=== PATIENT | female | born 1945 | race Caucasian/White ===

== ENCOUNTER 2017-05-04 10:27 | Emergency (ER) | payer MEDICARE, OTHER ==
[2017-05-04] MEDS ORDERED: LIDOCAINE HCL 20 ML VIAL ONE (10:49)
--- NOTE | 2017-05-04 10:54 | ERNOTE ---
Medical Problem HPI - Narrative Date of Service: 05/04/17 - General Chief Complaint: Laceration Time Seen by Provider: 05/04/17 10:41 Source: patient Exam Limitations: no limitations - Immun/Allergies/Home Medications Immunizations: IMMUNIZATION HX Immunizations Up to Date Yes History of Influenza Vaccine No Hx Pneumococcal Vaccination No Allergies/Adverse Reactions: Allergies phenytoin sodium [From Dilantin] Allergy (Unknown, Verified 05/04/17 10:44) phenytoin sodium extended [From Dilantin] Allergy (Unknown, Verified 05/04/17 10 :44) - History of Present History Narrative: Pt. comes in with c/o L sided facial pain and chin laceration following a fall an hour ago. Pt. states that she was going to get her hair cut and tripped over a curb and landed on the R side of her face. Pt. denies severe pain and denies any treatment prior to arrival but her daughter is a MACHINE SPECIALIST at this facility and recommended her to come to the ER. Pt. states taht she is up to date on her tetanus vaccine. Review of Systems - Review of Systems Constitutional: Present: no symptoms reported. Absent: recent illness, fever, chills, weakness, fatigue, malaise EYE: Present: no symptoms reported ENT: Present: no symptoms reported Respiratory: Present: no symptoms reported. Absent: shortness of breath, cough , wheezing Cardiology: Present: no symptoms reported. Absent: chest pain, palpitations, edema Gastrointestinal/Abdominal: Present: no symptoms reported. Absent: nausea, vomiting, diarrhea Genitourinary: Present: no symptoms reported Musculoskeletal: Present: no symptoms reported. Absent: back pain, joint pain Skin: Present: change in color - ecchymossi, other - laceration chin 0.4cm open and 0.3cm deep. Absent: rash Neurological: Present: no symptoms reported. Absent: headache, dizziness/light- headedness, weakness, numbness, tingling Endocrine: Present: no symptoms reported Hematologic/Lymphatic: Present: no symptoms reported All Other Systems: All systems neg except as marked - Patient's Past Medical History Patient History - Medical: Seizures Patient History - Cardiac/Respiratory: No pertinent hx Patient History - Cancer: No Hx of Cancer Patient History - Surgical Procedures: Appendectomy, Cholecystectomy, Total Hip Replacement Patient History - Other: None LMP (females 10-50): Menopausal - Social History Living Situations: home Abuse History: No History of abuse Psych History: No pertinent hx Smoking Status: Never smoker Alcohol Use: none Drug Use: none - Immunizations Immunizations Up to Date: Yes Hx Pneumococcal Vaccination: No History of Influenza Vaccine: No Physical Exam - Physical Exam General Appearance: Present: wd/wn, alert, no apparent distress Head Exam: Present: normal inspection, no evidence of injury Eye Exam: Normal inspection: bilateral, PERRL: bilateral, EOMI: bilateral Ears, Nose, Throat: Present: normal ENT inspection, normal pharynx Neck: Present: normal inspection, nontender. Absent: lymphadenopathy (R), lymphadenopathy (L) Respiratory: Present: no respiratory distress, normal breath sounds, no accessory muscle use, chest nontender, lungs clear Cardiovascular/Chest: Present: regular rate, rhythm, no murmur, normal peripheral pulses Gastrointestinal/Abdominal: Present: normal bowel sounds, nontender, nondistended, soft, no organomegaly Back Exam: Present: normal inspection, normal range of motion, no vertebral tenderness Extremity Exam: Present: normal inspection, non-tender, normal range of motion, no edema Neurological Exam: Present: alert, oriented, normal mood/affect, no motor/ sensory deficits, client solutions specialist II-XII nml as tested, normal cerebellar test Skin Exam: Present: normal color, warm/dry, other - laceration chin 0.4cm open and 0.3cm deep. Ecchymosis R cheekbone and R lateral mandible ED Progress - Date and Time Seen: Date and Time: 05/04/17 12:[address] Sharma and she recommends having pt. care deferred to oral maxiofacial surgeon. Called the maxiofacial surgeon at [facility] who states taht they don't have hospital privileges and spoke with Dr Rolon in [facility] and he states that he is unable to take care of this. Called to [facility] to consult with there maxiofacial surgeon. 05/04/17 12:[address] Gonzales who states that they do not have an oral maxiofacial surgery who will take care of acute injuries but do have someone who can see for follow up after it is repared. 05/04/17 12:[address] Armenta at [facility] and he accepts pt. for transfer. - Vital Signs Patient's Vital Signs:: I have reviewed the patient's vital signs. Vital Signs: Vital Signs 05/04/17 10:32 Temperature 36.1 C L Pulse Rate 93 Respiratory 16 Rate Blood Pressure 149/98 O2 Sat by Pulse 97 Oximetry - CT/Ultrasound CT/Ultrasound Narrative: CT head without intracranial abnormality. CT maxiofacial with interarticular, comminuted, displaced, impacted fracture of the L mandible. - Progress/Reassessment Chief Complaint: Laceration Progress:: Improved Procedures Lower Medial Face Anesthesia: 1% Lidocaine I & D Prep: betadine prep Wound's Depth/Shape: into subcutaneous Wound Explored: clean, to base Wound Intervention: irrigated w/saline Distal NVT: neuro/vasc intact, no tendon injury Wound Repaired With: sutures Suture Size/Type: 6-0 Number of Sutures: 3 Estimated blood loss (ml): 5 Wound Dressing: sterile dressing applied Complications: Pt christine procedure well Departure Clinical Impression: Fracture, mandible Qualifiers: Encounter type: initial encounter Fracture type: closed Mandible location: unspecified site of mandible Laterality: left Qualified Code(s): S02.609A - Fracture of mandible, unspecified, initial encounter for closed fracture - Departure Disposition: [facility] Condition: Fair Referrals: Keira Sales MD [Primary Care Provider] -
[2017-05-04 13:13] VITALS: BP 137/71
== END 2017-05-04 12:30 | disposition short-term general hospital (02) ==
LOC: ER 10:27
PROC: 0JQ10ZZ Repair Face Subcutaneous Tissue and Fascia, Open Approach (ICD-10-PCS; principal; 2017-05-04)
DX: S02.609A Fracture of mandible, unspecified, initial encounter for closed fracture (principal); S01.81XA Laceration without foreign body of other part of head, initial encounter; W01.0XXA Fall on same level from slipping, tripping and stumbling without subsequent striking against object, initial encounter; Y93.01 Activity, walking, marching and hiking; Y92.9 Unspecified place or not applicable; Y99.9 Unspecified external cause status; Z53.29 Procedure and treatment not carried out because of patient's decision for other reasons